=== PATIENT | female | born 1995 | race Caucasian/White ===

== ENCOUNTER 2020-05-17 13:53 | Emergency (ER) | payer MEDICAID ==
[~2020-05-17] VITALS: Ht 157.5 cm; Wt 54.4 kg
[2020-05-17 14:13] VITALS: BP 117/63
--- NOTE | 2020-05-17 14:17 | NUR ---
AMBULATED TO BED 12
[2020-05-17] MEDS ORDERED: LIDOCAINE 2% 1000 MG/50 ML VIAL INJ ONE (15:20)
--- NOTE | 2020-05-17 15:50 | NUR ---
6 ml of Lidocaine administered by DANIEL Brasher
[2020-05-17 15:57] VITALS: BP 11/65
--- NOTE | 2020-05-17 15:59 | NUR ---
cleared for d/c by DANIEL denney; d/c with prescription & instructions on Vulvar Abscess; pt fully understands all materials given re c/c; has no further questions; aox4; VSS; ambulatory with steady gait; no signs of acute distress
== END 2020-05-17 15:59 | disposition home or self-care (01) ==
LOC: MED 13:53
DX: N76.4 Abscess of vulva (principal); E11.9 Type 2 diabetes mellitus without complications; I10 Essential (primary) hypertension; E78.00 Pure hypercholesterolemia, unspecified
CPT/HCPCS: 36415; 46050; 81002; 81025; 99284; J2001